=== PATIENT | male | born 1965 | race Caucasian/White ===

== ENCOUNTER 2023-07-08 14:04 | Emergency (ER) | payer BC, SELFPAY ==
[2023-07-08 14:11] VITALS: BP 141/85; PULSE 78; RESP 16; TEMP 36.9; O2SAT 100; BMI 26.8
--- NOTE | 2023-07-08 15:33 | ED_ITS ---
HPI - Animal Bite General Chief Complaint: Animal Bite Stated Complaint: bat bite on rt thumb Time Seen by Provider: 07/08/23 15:30 Source: patient Mode of arrival: Ambulatory Limitations: no limitations History of Present Illness HPI narrative: The patient was entering a cabin in the [facility] about noon today. There was a bat in the building when he entered. The bat was fluttering about. The back contacted his right hand, he was bitten around the right thenar eminence. There are tiny puncture wounds. There was no significant active bleeding. He is no numbness and tingling the site. The site was thoroughly cleansed with soap and water there is no erythema around the site. He is no numbness and tingling around the site. He denies recent illness, he has no fever. He is right-hand dominant. He is no prior history of rabies exposure, he is never undergone rabies immunizations. Related Data Allergies Allergy/AdvReac Type Severity Reaction Status Date / Time No Known Drug Allergies Allergy Verified 07/08/23 14:11 Review of Systems Review of Systems ROS Unobtainable: All systems reviewed & are unremarkable except as noted in HPI and below Patient History Medical History (Updated 07/08/23 @ 16:28 by Siddhartha Milton MD) Ankylosing spondylitis Healthy adult Social History Smoking Status: Never smoker Smoking Status: Never smoker alcohol intake frequency: 0-2 drinks per day Substance Use Type: marijuana Exam Initial Vital Signs Initial Vital Signs: Vital Signs Temperature 98.5 F 07/08/23 14:11 Pulse Rate 78 07/08/23 14:11 Respiratory Rate 16 07/08/23 14:11 Blood Pressure 141/85 H 07/08/23 14:11 Pulse Oximetry 100 07/08/23 14:11 Oxygen Delivery Method Room Air 07/08/23 14:11 Const General: cooperative, healthy appearing, comfortable, well developed, well groomed and No acute distress Skin Other: Extremely small, shallow puncture wounds on the dorsal and volar side of the right thumb. The wounds appear to be very shallow. There is no active bleeding. There is no contamination. There is no erythema about the site. Neuro Other: Alert oriented. Normal motor and sensory exam to the right thumb. Extrem Other: Full range of motion throughout the right wrist and right extremities. Normal capillary refill to the right thumb. Course Orders Ordered: Discontinued Medications Rabies Immune Globulin (Rabies Immune Globulin 300 Unit/Ml 1ml Vial) 1,800 unit IM NOW ONE Stop: 07/08/23 15:33 Last Admin: 07/08/23 16:02 Dose: 1,800 unit Rabies Vaccine (Rabies Vaccine (Rabavert) 2.5 Units Syringe) 2.5 units IM .ONCE ONE Stop: 07/08/23 15:33 Last Admin: 07/08/23 16:01 Dose: 2.5 units Tetanus/Diphtheria Toxoids (Tetanus Diphtheria Toxoids 0.5 Ml Vial) 0.5 ml IM .ONCE ONE Stop: 07/08/23 15:33 Last Admin: 07/08/23 15:58 Dose: 0.5 ml Vital Signs Vital signs: Vital Signs - 8 hr 07/08/23 14:11 Temperature 98.5 F Pulse Rate 78 Respiratory Rate 16 Blood Pressure 141/85 H Pulse Oximetry 100 Oxygen Delivery Method Room Air MDM - Animal Bite MDM Narrative Medical decision making narrative: Patient has an identifiable bat bite site on his right hand. He is an obvious candidate for rabies post exposure prophylaxis. Tetanus was updated. His nurse infused about 1/2 of the immune globulin around the bite site. The remainder of the immunoglobulin was given IM. He received the 1st of a series of rabies vaccines. He will need to return here periodically for the additional vaccines, he was given a schedule for the immunizations. Discharge Plan Departure Patient Disposition: Home Clinical Impression: Bat bite wound Instructions: DI for Animal Bites Activity Restrictions/Additional Instructions: You have received an updated tetanus immunization. You have received a 1 time only rabies immune globulin. You received the 1st of a series of rabies vaccinations. We will give you a schedule of the upcoming vaccines. You will need to return here if the shots, availability to the rabies vaccine is quite limited. If any time you develop any significant redness or swelling around the bite site return for evaluation of the wound. Referrals: Amol Agustin MD [Primary Care Provider] - Stand Alone Forms: Patient Portal/API
[2023-07-08] MEDS: TETANUS DIPHTHERIA TOXOIDS 0.5 ML VIAL IM (15:58)
[2023-07-08] MEDS: RABIES VACCINE (RABAVERT) 2.5 UNITS SYRINGE IM (16:01)
[2023-07-08] MEDS: RABIES IMMUNE GLOBULIN 300 UNIT/ML 1mL VIAL 1800 UNIT IM (16:02)
[2023-07-08 16:29] VITALS: BP 157/96; PULSE 69; RESP 16; O2SAT 99
== END 2023-07-08 16:30 | disposition home or self-care (01) ==
PROVIDERS: Emergency Provider Emergency Medicine; PCP Family Medicine
DX: S61.451A Open bite of right hand, initial encounter (principal); W55.81XA Bitten by other mammals, initial encounter; Z20.3 Contact with and (suspected) exposure to rabies; Z23 Encounter for immunization
CPT/HCPCS: 90375; 90471; 90675; 90714; 96372; 99283